=== PATIENT | female | born 1980 | race Caucasian/White ===

== ENCOUNTER 2022-03-12 13:47 | Emergency (ER) | payer MEDICAID ==
[~2022-03-12] VITALS: Ht 162.6 cm; Wt 81.6 kg
[2022-03-12 14:40] VITALS: BP 157/90
== END 2022-03-12 16:58 | disposition home or self-care (01) ==
LOC: EDH 13:47
DX: J02.9 Acute pharyngitis, unspecified (principal); Z20.822 Contact with and (suspected) exposure to COVID-19
CPT/HCPCS: 99285; 71045; 87635; 87880; 87804 ×2; 93005; C9803